=== PATIENT | female | born 1985 | race American Indian/Alaskan Native ===

== ENCOUNTER 2017-05-26 15:28 | Emergency (ER) | payer MEDICARE ==
[2017-05-26 16:15] LABS: Hematocrit 37.9 % (30.3-42.9); Hemoglobin 12.3 gm/dl (10.1-14.3); Mean Corpuscular HGB Conc 32 % (30-34); Mean Corpuscular Hemoglobin 29 pg (28-32); Mean Corpuscular Volume 91 fl (79-97); Platelet Count 379 K/mm3 (140-440); Red Blood Count 4.17 M/mm3 (3.65-5.03); Red Cell Distribution Width 14.2 % (13.2-15.2); White Blood Count 9.7 K/mm3 (4.5-11.0)
[2017-05-26 16:42] LABS: Anion Gap 19 mmol/L; BUN/Creatinine Ratio 28; Blood Urea Nitrogen 14 mg/dL (7-17); Calcium 9.2 mg/dL (8.4-10.2); Carbon Dioxide 29 mmol/L (22-30); Chloride 98.6 mmol/L (98-107); Glucose 89 mg/dL (65-100); Potassium 4.7 mmol/L (3.6-5.0); Sodium 142 mmol/L (137-145)
[2017-05-26 21:17] LABS: Bacteria,Urine 1+ /HPF (Negative); Bilirubin,Urine NEG (Negative); Blood,Urine MOD (Negative); Ketones,Urine NEG (Negative); Leukocyte Esterase,Urine NEG (Negative); Mucus,Urine FEW /HPF; Nitrite,Urine NEG (Negative); Protein,Urine <15 mg/dL mg/dL (Negative); Urobilinogen,Urine < 2.0 mg/dL (<2.0)
[2017-05-27] MEDS ORDERED: NORCO 5/325 PO ONE (01:24)
--- NOTE | 2017-05-27 01:52 | Emergency Department Report ---
HPI - General Chief Complaint: Vaginal Bleeding Time Seen by Provider: 05/27/17 00:05 - HPI HPI: This is a 32-year-old female who presents to the emergency department with multiple complaints. The patient says that she feels like she is . She did take a home test and it was negative. However the patient says that she has a voracious appetite, has been on close to 50 pounds over the past few months, and says that she feels like her breasts are sore and figures that this is all related to being . She also says that she is having some vaginal bleeding and therefore thinks that she is having a miscarriage. With this 2 days of vaginal bleeding, the patient would be about 1 week early for her normal menstrual cycle. The patient also complains of some upper respiratory infection type symptoms including congestion in the head and chest, sore throat. Finally the patient also complains of some pelvic and vaginal pain. She denies any discharge, dysuria. However she says that she recently broke up with a boyfriend and is concerned that she could have caught something. She does not have a primary care physician, [facility]. She has not taken anything for her symptoms prior to presentation. ED Past Medical Hx - Past Medical History Previous Medical History?: No - Surgical History Additional Surgical History: D&C - Social History Smoking Status: Never Smoker Substance Use Type: None - Medications Home Medications: Home Medications Medication Instructions Recorded Confirmed Last Taken Type Benzonatate [Tessalon Perles] 100 mg PO Q8HR PRN #20 capsule 05/27/17 Unknown Rx Cephalexin [Keflex] 1,000 mg PO Q12HR #28 cap 05/27/17 Unknown Rx Fluconazole [Diflucan TAB] 150 mg PO ONCE #1 tablet 05/27/17 Unknown Rx ED Review of Systems ROS: Stated complaint: VAGINAL BLEEDING,POSSIBLE MISCARRIAGE Other details as noted in HPI Comment: All other systems reviewed and negative Constitutional: denies: chills, fever Eyes: denies: eye pain, eye discharge, vision change ENT: throat pain, congestion Respiratory: cough. denies: shortness of breath Cardiovascular: denies: chest pain, palpitations Gastrointestinal: denies: nausea, vomiting Genitourinary: denies: dysuria, discharge Musculoskeletal: denies: back pain, joint swelling, arthralgia Skin: denies: rash, lesions Neurological: denies: headache, weakness, paresthesias Physical Exam - Physical Exam Vital Signs: Vital Signs 05/26/17 05/27/17 05/27/17 15:45 00:17 00:24 Temperature 98.6 F Pulse Rate 85 Respiratory 18 18 Rate Blood Pressure 105/75 O2 Sat by Pulse 100 100 98 Oximetry 05/27/17 01:03 Temperature Pulse Rate Respiratory Rate Blood Pressure 113/69 O2 Sat by Pulse 100 Oximetry Physical Exam: GENERAL: The patient is well-developed well-nourished. HENT: Normocephalic. Atraumatic. Patient has moist mucous membranes. Oropharynx is clear without tonsillar perjury, erythema or exudates. EYES: Extraocular motions are intact. Pupils equal reactive to light bilaterally. NECK: Supple. Trachea is midline. CHEST/LUNGS: Clear to auscultation. There is no respiratory distress noted. HEART/CARDIOVASCULAR: Regular. There is no tachycardia. There is no gallop rub or murmur. ABDOMEN: Abdomen is soft, nontender. Patient has normal bowel sounds. There is no abdominal distention. SKIN: Skin is warm and dry. NEURO: The patient is awake, alert, and oriented. The patient is cooperative. The patient has no focal neurologic deficits. The patient has normal speech and gait. : There is no labial or vaginal lesions seen. There is a mild amount of maroon colored blood in the vaginal vault. No discharge. MUSCULOSKELETAL: There is no tenderness or deformity. There is no limitation range of motion. There is no evidence of acute injury. ED Course Vital Signs 05/26/17 05/27/17 05/27/17 15:45 00:17 00:24 Temperature 98.6 F Pulse Rate 85 Respiratory 18 18 Rate Blood Pressure 105/75 O2 Sat by Pulse 100 100 98 Oximetry 05/27/17 01:03 Temperature Pulse Rate Respiratory Rate Blood Pressure 113/69 O2 Sat by Pulse 100 Oximetry ED Medical Decision Making - Lab Data Result diagrams: 05/26/17 15:56 05/26/17 15:56 - Radiology Data Radiology results: report reviewed, image reviewed interpreted by me: Chest x-ray does not show any acute process. There are no pleural effusions, obvious pneumonia and there is no pneumothorax. EXAM: US PELVIS DUPLEX DOPPLER COMP, US TRANSVAGINAL HISTORY: Pelvic plain, bleeding. TECHNIQUE: Directed transabdominal and transvaginal ultrasound examination of the pelvis was performed, with grayscale and color Doppler images obtained. No prior studies are available for comparison. FINDINGS: The uterus is anteverted, and measures 4.9 x 3.8 x 7.0 cm. There are multiple nabothian cysts in the cervix and lower uterine segment, measuring up to 8 mm in diameter. The endometrium measures 5 mm, within normal limits for patient's age. There is trace fluid in the endometrial canal. The right ovary measures 2.3 x 1.9 x 3.5 cm, and contains a 0.9 cm cyst/follicle. The left ovary measures 2.1 x 1.4 x 3.7 cm, normal in appearance. There is appropriate color doppler flow in both ovaries, without evidence of torsion. No other adnexal mass is seen. There is no significant pelvic free fluid. IMPRESSION: 1. Trace fluid in the endometrial canal. Normal thickness of the endometrium. 2. Incidental small nabothian cysts in the cervix and lower uterine segment. 3. 0.9 cm right ovarian cyst/follicle. - Medical Decision Making This patient presents with multiple complaints, all of which appear to require primary care and [facility] outpatient visits. However the patient was worked up for her different complaints. Regarding the pelvic pain there was no sign of any ovarian torsion and the ultrasound showed a nabothian cyst and a very small right-sided ovarian cyst. She was negative for rapid strep. She was negative for . Labs were mostly unremarkable otherwise. She most likely has a viral syndrome. She was treated with a antitussive for her cough, she was given antibiotics for the hidradenitis suppertiva that was not ready for I&D. Thyroid function was normal and does not account for her weight gain and voracious appetite. Gonorrhea and chlamydia was sent and patient will be contacted if positive. She was given referrals for primary care and [facility]. She will return to ER for any worsening of her symptoms or any acute distress. - Differential Diagnosis hypothyroidism, , strep pharyngitis, viral syndrome Critical Care Time: No Critical care attestation.: If time is entered above; I have spent that time in minutes in the direct care of this critically ill patient, excluding procedure time. ED Disposition Clinical Impression: Dysfunctional uterine bleeding, Cough, Vaginal pain, Hidradenitis suppurativa Upper respiratory infection Qualifiers: URI type: unspecified URI Qualified Code(s): J06.9 - Acute upper respiratory infection, unspecified Disposition: TO HOME OR SELFCARE Is pt being admited?: No Condition: Stable Instructions: Dysfunctional Uterine Bleeding (ED), Ovarian Cyst (ED), Upper Respiratory Infection (ED), Abscess (ED) Additional Instructions: Please follow up with a primary care physician and [facility] in the next few days if possible. Return to the emergency Department with any worsening of your symptoms or any acute distress. Prescriptions: Benzonatate [Tessalon Perles] 100 mg PO Q8HR PRN #20 capsule PRN Reason: Cough Cephalexin [Keflex] 1,000 mg PO Q12HR #28 cap Fluconazole [Diflucan TAB] 150 mg PO ONCE #1 tablet Referrals: [facility] [Primary Care Provider] - 3-5 Days ULICES GODINEZ MD [Staff Physician] - 3-5 Days [facility] [Outside] - 3-5 Days [facility] [Provider Group] - 3-5 Days [facility] [Provider Group] - 3-5 Days Time of Disposition: 02:29
--- NOTE | 2017-05-27 02:19 | Ultrasound Report ---
FINAL REPORT EXAM: US PELVIS DUPLEX DOPPLER COMP, US TRANSVAGINAL HISTORY: Pelvic plain, bleeding. TECHNIQUE: Directed transabdominal and transvaginal ultrasound examination of the pelvis was performed, with grayscale and color Doppler images obtained. No prior studies are available for comparison. FINDINGS: The uterus is anteverted, and measures 4.9 x 3.8 x 7.0 cm. There are multiple nabothian cysts in the cervix and lower uterine segment, measuring up to 8 mm in diameter. The endometrium measures 5 mm, within normal limits for patient's age. There is trace fluid in the endometrial canal. The right ovary measures 2.3 x 1.9 x 3.5 cm, and contains a 0.9 cm cyst/follicle. The left ovary measures 2.1 x 1.4 x 3.7 cm, normal in appearance. There is appropriate color doppler flow in both ovaries, without evidence of torsion. No other adnexal mass is seen. There is no significant pelvic free fluid. IMPRESSION: 1. Trace fluid in the endometrial canal. Normal thickness of the endometrium. 2. Incidental small nabothian cysts in the cervix and lower uterine segment. 3. 0.9 cm right ovarian cyst/follicle.
--- NOTE | 2017-05-27 02:44 | XRay Report ---
FINAL REPORT PROCEDURE: XR CHEST ROUTINE 2V TECHNIQUE: PA and lateral chest radiographs were obtained. CPT 78091 HISTORY: cough COMPARISON: No prior studies are available for comparison. FINDINGS: Heart: Normal. Mediastinum/Vessels: Normal. Lungs/Pleural space: Normal. Bony thorax: No acute osseous abnormality. Other: IMPRESSION: Normal examination.
[2017-05-27 03:02] VITALS: BP 104/66
== END 2017-05-27 03:05 | disposition home or self-care (01) ==
LOC: ED 15:28
DX: N93.8 Other specified abnormal uterine and vaginal bleeding (principal); J06.9 Acute upper respiratory infection, unspecified; L73.2 Hidradenitis suppurativa; R10.2 Pelvic and perineal pain; Z88.2 Allergy status to sulfonamides
CPT/HCPCS: 36415; 71020; 76830; 80048; 81001; 84443; 84702; 85027; 87116; 87210; 87430; 87591; 93975